=== PATIENT | female | born 1960 | race Caucasian/White ===

== ENCOUNTER 2023-05-04 13:50 | Emergency (ER) | payer BC, SELFPAY ==
--- NOTE | 2023-05-04 | ECG_ITS ---
Test Reason : CHEST PAIN Blood Pressure : / mmHG Vent. Rate : 086 BPM Atrial Rate : 086 BPM P-R Int : 158 ms QRS Dur : 082 ms QT Int : 342 ms P-R-T Axes : 081 078 066 degrees QTc Int : 409 ms Normal sinus rhythm Anterior infarct (cited on or before 10-AUG-2013) Abnormal ECG When compared with ECG of 10-AUG-2013 16:43, No significant change was found Referred By: Junito Banegas Electronically Signed By:Angelito Keith
--- NOTE | ~2023-05-04 | CT_ITS ---
EXAMINATION: CT ABDOMEN AND PELVIS WITHOUT CONTRAST CLINICAL INFORMATION: Pain of left flank. COMPARISON: Abdomen ultrasound from 08/10/2013. CT angiography from 03/03/2023. TECHNIQUE: Multidetector volumetric imaging was performed from the superior aspect of the liver through the pubic symphysis. Sagittal and coronal reformatted images were obtained on the technologist's workstation. This CT examination was performed using dose optimization techniques as appropriate, variously including the following: *Automated exposure control *Adjustment of mA and/or kV according to patient size (this includes techniques or standardized protocols for targeted exams where dose is matched to indication/reason for exam; i.e. extremities or head) *Use of iterative reconstruction technique DLP: 496 mGy-cm FINDINGS: LUNG BASES: Linear opacities of mild atelectasis or scarring are present in each lower lobe. No pulmonary consolidation or pleural effusion. LIVER: The liver has normal size, shape, and attenuation. No evidence of liver mass. GALLBLADDER AND BILIARY TREE: Gallbladder is surgically absent. Common bile duct remains dilated and measures up to 1.3 cm transverse diameter (1 cm on 03/03/2023). No evidence of choledocholithiasis. PANCREAS: Normal. No edema, pancreatic ductal dilatation or mass. SPLEEN: Normal. ADRENAL GLANDS: Normal. KIDNEYS AND URETERS: Kidneys are normal in size. There appear to be a few 0.2 cm calyceal stones of the left kidney. No large renal stones. No ureteral calculi, hydroureteronephrosis or perinephric edema. BLADDER: Normal. No calculi or wall thickening. BOWEL AND PERITONEUM: The gastrointestinal tract is not well evaluated on this noncontrast examination. The stomach is underdistended. No dilated bowel loops. No evidence of appendicitis. There are multiple diverticula of the right and left colon without evidence of acute diverticulitis. The colon and rectum are underdistended. There is mild haziness of the perirectal fat. The lymph nodes within the mesorectal compartment measure up to 0.5 cm short axis dimension. ABDOMINAL WALL: Unremarkable. VASCULATURE: Mild atherosclerotic calcification of the abdominal aorta without aneurysm. LYMPH NODES: No pathologic sized lymph nodes in the abdomen or pelvis. No inguinal lymphadenopathy. PELVIC VISCERA: Prior hysterectomy with residual cervix in place. No adnexal mass. No pelvic free fluid. MUSCULOSKELETAL: No acute or suspicious osseous abnormality. Degenerative disc disease of L3-L4 (as manifest by narrowing of the disc space, endplate irregularity and sclerosis, vacuum disc phenomenon, and vertebral osteophyte formation). CT/CT abdomen pelvis wo IV con IMPRESSION: * There appear to be a few 0.2 cm calculi of the left kidney. However, no ureteral stones or hydroureteronephrosis. No acute abnormalities along the urinary tracts. * The gastrointestinal tract is not well evaluated on this noncontrast examination. Clinical correlation required for the finding of mild haziness of the perirectal fat. If the patient has any lower pelvic/rectal region pain and diarrhea, then a mild proctitis would be suspected. * Multiple diverticula of the colon without evidence of diverticulitis. * Cholecystectomy with chronically dilated common duct. The common duct dilatation has increased compared to 03/03/2023. Consider correlation with liver function tests and bilirubin levels.
[2023-05-04 13:54] VITALS: BP 182/96; PULSE 106; RESP 16; TEMP 36.6; O2SAT 97; BMI 17.8
--- NOTE | 2023-05-04 13:54 | ED_ITS ---
HPI - General Adult General Chief complaint: Abdominal Pain Stated complaint: L side pain Time Seen by Provider: 05/04/23 16:19 Source: patient Mode of arrival: ambulatory Limitations: no limitations History of Present Illness HPI narrative: Patient with history of Crohn's disease on stelara chronic abdominal pain syndrome on morphine 15 mg twice a day followed by pain clinic comes here for similar left upper quadrant and left flank pain for last 4 days associated with nausea vomiting and diarrhea claiming get her medication not working no blood in the stool no fever no chills patient is very demanding for the pain medication had labs and CT scan of abdomen done prior to my evaluation which was negative for any acute. Related Data Home Medications Medication Instructions Recorded Confirmed albuterol sulfate 90 mcg/actuation 0 mcg inhalation 07/04/22 07/04/22 aerosol inhaler azathioprine 50 mg tablet 25 mg PO DAILY 07/04/22 07/04/22 butalbital 50 mg-acetaminophen 325 1 cap PO Q4H PRN 07/04/22 07/04/22 mg-caffeine 40 mg-codeine 30 mg cap clonazepam 1 mg tablet 1 mg PO BEDTIME PRN 07/04/22 07/04/22 dicyclomine 10 mg capsule 10 mg PO BID PRN 07/04/22 07/04/22 ergocalciferol (vitamin D2) 1,250 1,250 mcg PO QWEEK 07/04/22 07/04/22 mcg (50,000 unit) capsule hydroxyzine HCl 25 mg tablet 100 mg PO BEDTIME 07/04/22 07/04/22 levothyroxine 25 mcg tablet 25 mcg PO DAILY 07/04/22 07/04/22 (Levoxyl) montelukast 10 mg tablet 10 mg PO BEDTIME 07/04/22 07/04/22 nortriptyline 50 mg capsule 50 mg PO BEDTIME 07/04/22 07/04/22 omeprazole 20 mg capsule,delayed 20 mg PO DAILY 07/04/22 07/04/22 release tizanidine 2 mg tablet 2 mg PO BID PRN 07/04/22 07/04/22 tramadol 50 mg tablet 50 mg PO Q6H PRN 07/04/22 07/04/22 Allergies Allergy/AdvReac Type Severity Reaction Status Date / Time prednisone AdvReac Severe steroid Verified 05/04/23 13:54 psychosis Review of Systems Review of Systems: Yes all other systems are reviewed and are negative [facility] Past Medical History Medical History Depression Fibromyalgia Gastroesophageal reflux disease Hypothyroidism Insomnia Migraine headache Seasonal allergies Social History Social History Advance Directives: No Advance Directives Information Provided: No Physical Exam ED Vital Signs: Vital Signs - 24 hr 05/04/23 13:54 05/04/23 16:49 05/04/23 19:10 Temperature 97.8 F Pulse Rate 106 H 89 85 Respiratory Rate 16 18 18 Blood Pressure 182/96 H 170/93 H 180/93 H Pulse Oximetry 97 98 99 Oxygen Delivery Method Room Air Room Air Room Air BMI result Body Mass Index 17.8 Appearance: Alert. Oriented X3. No acute distress. Eyes: No pallor or icterus ENT: Pharynx normal. Oral Mucosa moist Neck: Normal inspection. Neck supple. CVS: Normal heart rate and rhythm. Pulses normal. Respiratory: No respiratory distress. Equal air entry bilateral, no wheezing/rales/rhonchi Abdomen: Soft , diffuse abdominal tenderness no rebound tenderness or guarding Bowel sounds are present, no mass palpable, left flank and back tenderness very sensitive to touch Skin: Skin warm and dry. Normal skin color. Normal skin turgor. Extremities: No lower extremity edema. No calf tenderness Neuro: Oriented X 3. No motor deficit. Course Course Course Narrative: RME- 63 year old female with past medical history significant for Crohn disease, chronic pain syndrome presents for evaluation of left flank pain. Symptoms started 3 days ago. She endorses diarrhea and vomiting. Pain is not improved with Morphine that she has at home. Plan for labs, Ct abdomena nd pelvis as well as UA Medications Administered Generic Name Dose Route Start Last Admin Trade Name Freq PRN Reason Stop Dose Admin Sodium Chloride 1,000 mls @ 999 mls/hr 05/04/23 18:49 05/04/23 18:54 Ns IV 05/04/23 19:49 999 mls/hr .Q1H1M ONE Administration Discontinued Medications Generic Name Dose Route Start Last Admin Trade Name Freq PRN Reason Stop Dose Admin Hydromorphone HCl 2 mg 05/04/23 16:36 05/04/23 16:58 Hydromorphone Hcl 2 Mg/Ml Vial IVPUSH 05/04/23 16:37 2 mg ONCE ONE Administration Protocol Sodium Chloride 1,000 mls @ 999 mls/hr 05/04/23 16:36 05/04/23 18:24 Ns IV 05/04/23 17:36 Infused .Q1H1M ONE Infusion Promethazine HCl 12.5 mg/ 50.5 mls @ 202 mls/hr 05/04/23 18:22 05/04/23 18:48 Sodium Chloride IV 05/04/23 18:23 Infused ONCE ONE Infusion Ketorolac Tromethamine 30 mg 05/04/23 18:22 05/04/23 18:32 Ketorolac Tromethamine 30 Mg/Ml Vial IVPUSH 05/04/23 18:23 Not Given ONCE ONE Morphine Sulfate 4 mg 05/04/23 18:45 05/04/23 19:02 Morphine Sulfate 4 Mg/Ml Cartridge IVPUSH 05/04/23 18:46 4 mg ONCE ONE Administration Protocol Ondansetron HCl 4 mg 05/04/23 16:36 05/04/23 17:01 Ondansetron Hcl 4 Mg/2 Ml Vial IVPUSH 05/04/23 16:37 Not Given ONCE ONE Medical Decision Making Medical Decision Making [facility] Narrative: Patient with chronic pain workup is negative so far patient asking for more narcotics already received 2 mg of Dilaudid does have morphine at home very argumentative and demanding discharge patient home advised to follow with pain clinic Lab Data MDM Lab Attestation statement: I reviewed the patient's lab results. 05/04/23 14:47 05/04/23 14:47 Labs: Lab Results 05/04/23 05/04/23 05/04/23 Range/Units 14:47 14:47 18:28 WBC 8.5 (4.8-10.8) X10*3/uL RBC 4.16 L (4.20-5.50) X10*6/uL Hgb 11.2 L (12.0-16.0) g/dl Hct 34.5 L (37.0-47.0) % MCV 82.9 (80.0-98.0) fL MCH 26.9 L (27.0-33.0) pg MCHC 32.5 (31.0-35.0) g/dl RDW 13.3 (11.0-16.0) % Plt Count 252 (160-400) X10*3/uL MPV 8.8 L (9.4-12.3) fL Immature Gran % (Auto) 0.2 (0.0-0.4) % Neut % (Auto) 77.5 H (45-73) % Lymph % (Auto) 15.2 L (20-40) % [place] % (Auto) 6.0 (2-11) % Eos % (Auto) 0.4 (0-4) % Baso % (Auto) 0.7 (0-2) % Lymph # (Auto) 1.3 (1.2-4.9) X10*3/uL [place] # (Auto) 0.5 (0.1-1.2) X10*3/uL Eos # (Auto) 0.0 (0.0-0.4) X10*3/uL Baso # (Auto) 0.1 (0.0-0.2) X10*3/uL Abs Immat Gran (auto) 0.02 (0.00-0.03) X10*3/uL Absolute Neuts (auto) 6.6 (2.0-8.3) x10*3/uL Absolute Nucleated RBC 0.000 (0.0-0.012) X10*3/uL Nucleated RBC % (auto) 0.0 (0.0-0.2) /100WBC Sodium 139 (135-145) mmol/L Potassium 4.3 (3.3-5.1) mmol/L Chloride 107 (96-108) mmol/L Carbon Dioxide 25 (22-29) mmol/L Anion Gap 11 L (12-20) BUN 17 H (9-16) mg/dL Creatinine 0.99 (0.5-1.4) mg/dL Estim Creat Clear Calc 43.9 Estimated GFR 56 Random Glucose 103 (60-115) mg/dL Calcium 9.0 (8.4-10.2) mg/dL Total Bilirubin 0.2 (0.0-1.0) mg/dL AST 19 (5-31) U/L ALT 12 (0-31) U/L Alkaline Phosphatase 71 (39-117) U/L Total Protein 6.8 (6.5-8.0) g/dL Albumin 4.0 (3.5-5.0) g/dL Lipase 9 (8-78) U/L Urine Color Yellow Urine Appearance Clear Urine pH 7.5 (5.0-9.0) Ur Specific [place] 1.010 (1.005-1.025) Urine Protein Negative (Neg-Trace) mg/dL Urine Glucose (UA) Negative (Negative) mg/dL Urine Ketones Negative (Negative) mg/dL Urine Blood Negative (Negative) Urine Nitrite Negative (Negative) Ur Leukocyte Esterase Negative (Negative) Urine RBC 0-2 (0-2) /HPF Urine WBC 0-5 (0-5) /HPF Ur Squamous Epith Cells 0-2 (0-2) /HPF Urine Bacteria None Seen (None Seen) Hyaline Casts 0-2 (0-2) /LPF Acetone, Qual Negative (Negative) Discharge Plan Discharge Clinical Impression: Chronic pain syndrome Patient Disposition: Home, Self-Care Instructions: Chronic Pain (ED) Additional Instructions: Continue your pain medications follow-up with the Pain Clinic Prescriptions: No Action dicyclomine 10 mg capsule 10 mg PO BID PRN levothyroxine [Levoxyl] 25 mcg tablet 25 mcg PO DAILY hydroxyzine HCl 25 mg tablet 100 mg PO BEDTIME tramadol 50 mg tablet 50 mg PO Q6H PRN nortriptyline 50 mg capsule 50 mg PO BEDTIME montelukast 10 mg tablet 10 mg PO BEDTIME azathioprine 50 mg tablet 25 mg PO DAILY tizanidine 2 mg tablet 2 mg PO BID PRN ergocalciferol (vitamin D2) 1,250 mcg (50,000 unit) capsule 1,250 mcg PO QWEEK clonazepam 1 mg tablet 1 mg PO BEDTIME PRN omeprazole 20 mg capsule,delayed release(DR/EC) 20 mg PO DAILY albuterol sulfate 90 mcg/actuation HFA aerosol inhaler 0 mcg inhalation [id number] mg capsule 1 cap PO Q4H PRN
[2023-05-04 14:51] LABS: MANUAL DIFF FLAG NO
[2023-05-04 14:54] LABS: Basophils Absolute Auto 0.1 X10*3/uL (0.0-0.2); Basophils Percent Auto 0.7 % (0-2); Eosinophils Percent Auto 0.4 % (0-4); Hematocrit 34.5 % (37.0-47.0); Hemoglobin 11.2 g/dl (12.0-16.0); Imm Gran Abs Auto 0.02 X10*3/uL (0.00-0.03); Imm Gran Pct Auto 0.2 % (0.0-0.4); Lymphocytes Absolute Auto 1.3 X10*3/uL (1.2-4.9); Lymphocytes Percent Auto 15.2 % (20-40); Mean Corpuscular HGB Conc 32.5 g/dl (31.0-35.0); Mean Corpuscular Hemoglobin 26.9 pg (27.0-33.0); Mean Corpuscular Volume 82.9 fL (80.0-98.0); Mean Platelet Volume 8.8 fL (9.4-12.3); Monocytes Absolute Auto 0.5 X10*3/uL (0.1-1.2); Neutrophils Absolute Auto 6.6 x10*3/uL (2.0-8.3); Neutrophils Percent Auto 77.5 % (45-73); Platelet Count 252 X10*3/uL (160-400); Red Blood Count 4.16 X10*6/uL (4.20-5.50); Red Cell Distribution Width 13.3 % (11.0-16.0); White Blood Count 8.5 X10*3/uL (4.8-10.8)
[2023-05-04 15:10] LABS: Alanine Aminotransferase 12 U/L (0-31); Alkaline Phosphatase 71 U/L (39-117); Anion Gap 11 (12-20); Aspartate Amino Transferase 19 U/L (5-31); Bilirubin Total 0.2 mg/dL (0.0-1.0); Blood Urea Nitrogen 17 mg/dL (9-16); Carbon Dioxide 25 mmol/L (22-29); Chloride 107 mmol/L (96-108); Creatinine Clr Calc Pharmacy 43.9; Estimated Glomerular Filt Rate 56; Glucose Random 103 mg/dL (60-115); Lipase 9 U/L (8-78); Potassium 4.3 mmol/L (3.3-5.1); Sodium 139 mmol/L (135-145); Total Protein 6.8 g/dL (6.5-8.0)
[2023-05-04 16:49] VITALS: BP 170/93; PULSE 89; RESP 18; O2SAT 98
[2023-05-04] MEDS: HYDROmorphone HCl 2 MG/ML VIAL IVPUSH (16:58)
[2023-05-04] MEDS: 0.9 % Sodium Chloride 1,000 ML 999 ML IV ×2 (16:58→18:54)
[2023-05-04 17:31] LABS: Acetone, serum QL Negative (Negative)
--- NOTE | 2023-05-04 18:34 | PC.NURSE ---
patient states RN and MD are ignoring her symptoms of pain. IVP dialudid administered. states no relief. Toradol ordered- patient refused. states she has chrohns disease and MD is trying to jl her up more than she already is. RN explained oral and iv meds metabolize differently. patient did not want to accept education.
[2023-05-04 18:47] LABS: Appearance Urine Clear; Color Urine Yellow; Glucose Urine UA Negative (Negative); Leukocyte Esterase Urine Negative (Negative); Nitrite Urine Negative (Negative); PH 7.5 (5.0-9.0); Urine Blood Negative (Negative); Urine Ketones Negative (Negative); Urine Protein Negative (Neg-Trace)
[2023-05-04 18:52] LABS: Bacteria Urine None Seen (None Seen); Hyaline Casts Urine 0-2 /LPF (0-2); RBC Urine 0-2 /HPF (0-2); Squamous Epithelial Cell Urine 0-2 /HPF (0-2); WBC Urine 0-5 /HPF (0-5)
[2023-05-04] MEDS: Morphine Sulfate 4 MG/ML CARTRIDGE IVPUSH (19:02)
[2023-05-04 19:10] VITALS: BP 180/93; PULSE 85; RESP 18; O2SAT 99
[2023-05-04] MEDS: Ketorolac Tromethamine 30 MG/ML VIAL IVPUSH (19:39)
== END 2023-05-04 19:46 | disposition home or self-care (01) ==
PROVIDERS: Physician Assistant; Emergency Provider Internal Medicine; PCP Family Medicine
DX: G89.4 Chronic pain syndrome (principal); R10.12 Left upper quadrant pain; R10.9 Unspecified abdominal pain; Z79.891 Long term (current) use of opiate analgesic
CPT/HCPCS: 36415; 74176; 80053; 81001; 82009; 83690; 85025; 93005; 96361; 96365; 96375; 99284; J1170; J1885; J2270; J2550

== ENCOUNTER 2023-11-06 09:27 | Emergency (ER) | payer BC, SELFPAY ==
--- NOTE | ~2023-11-06 | XR_ITS ---
EXAMINATION: XR CHEST CLINICAL INFORMATION: Chest pain COMPARISON: Chest radiograph 09/10/2023 TECHNIQUE: 2 views of the chest were obtained. FINDINGS: No focal consolidation. No pneumothorax. Trachea is midline. Cardiac mediastinal silhouette is not enlarged. No large pleural effusion. Osseous structures are intact. Soft tissues are unremarkable. XR/XR chest 2V IMPRESSION: No acute cardiopulmonary process.
--- NOTE | 2023-11-06 09:29 | ECG_ITS ---
Test Reason : CHEST PAIN Blood Pressure : / mmHG Vent. Rate : 107 BPM Atrial Rate : 107 BPM P-R Int : 138 ms QRS Dur : 068 ms QT Int : 318 ms P-R-T Axes : 086 076 059 degrees QTc Int : 424 ms Sinus tachycardia Possible Left atrial enlargement Anteroseptal infarct (cited on or before 10-AUG-2013) Abnormal ECG When compared with ECG of 04-MAY-2023 17:10, Questionable change in initial forces of Septal leads Referred By: Generic ED Physician Electronically Signed By:Angelito Keith
[2023-11-06 09:34] VITALS: BP 157/74; PULSE 112; RESP 20; TEMP 37.5; O2SAT 97; BMI 15.5
--- NOTE | 2023-11-06 10:29 | ED.CHESTPAIN ---
HPI - Chest Pain General Chief Complaint: Chest Pain Stated Complaint: Chest pain Time Seen by Provider: 11/06/23 10:17 Source: patient, RN notes reviewed and old records reviewed Mode of arrival: ambulatory History of Present Illness HPI narrative: 63-year-old female with a past medical history of hypothyroid, insomnia, GERD, depression, fibromyalgia, migraines, Crohn's disease, presenting to the ED complaining of left-sided chest pain beneath breast x this morning with mild SOB, cough, and chest discomfort worse with deep inspiration. Also reports nausea, vomiting, & decreased p.o. intake over the past 5 days, denies vomiting today. Admits to increased anxiety. Denies pedal edema some calf tenderness, recent travel, sick contacts. Reports chronic abdominal pain and constipation, unchanged MD complaint: chest pain Related Data Home Medications Medication Instructions Recorded Confirmed albuterol sulfate 90 mcg/actuation 0 mcg inhalation 07/04/22 07/04/22 aerosol inhaler azathioprine 50 mg tablet 25 mg PO DAILY 07/04/22 07/04/22 butalbital 50 mg-acetaminophen 325 1 cap PO Q4H PRN 07/04/22 07/04/22 mg-caffeine 40 mg-codeine 30 mg cap clonazepam 1 mg tablet 1 mg PO BEDTIME PRN 07/04/22 07/04/22 dicyclomine 10 mg capsule 10 mg PO BID PRN 07/04/22 07/04/22 ergocalciferol (vitamin D2) 1,250 1,250 mcg PO QWEEK 07/04/22 07/04/22 mcg (50,000 unit) capsule hydroxyzine HCl 25 mg tablet 100 mg PO BEDTIME 07/04/22 07/04/22 levothyroxine 25 mcg tablet 25 mcg PO DAILY 07/04/22 07/04/22 (Levoxyl) montelukast 10 mg tablet 10 mg PO BEDTIME 07/04/22 07/04/22 nortriptyline 50 mg capsule 50 mg PO BEDTIME 07/04/22 07/04/22 omeprazole 20 mg capsule,delayed 20 mg PO DAILY 07/04/22 07/04/22 release tizanidine 2 mg tablet 2 mg PO BID PRN 07/04/22 07/04/22 tramadol 50 mg tablet 50 mg PO Q6H PRN 07/04/22 07/04/22 Allergies Allergy/AdvReac Type Severity Reaction Status Date / Time prednisone AdvReac Severe steroid Verified 11/06/23 09:40 psychosis Review of Systems Review of Systems: Constitutional: No Fever, No Chills, No Fatigue, No Malaise ENT/Mouth: No Ear Pain, No Nasal Congestion, N No sore throat, No Rhinorrhea, No Swallowing Difficulty Eyes: No Eye Pain, No Swelling, No Redness, No Foreign Body, No Discharge, No Vision Changes Cardiovascular: + Chest Pain, + SOB, No Edema, No Palpitations Respiratory: No Cough, No Sputum, No Wheezing, No Smoke Exposure, No Dyspnea Gastrointestinal: + Nausea (improved), + Vomiting (improved), No Diarrhea, No Constipation, chronic Abdominal pain Genitourinary: No Dysuria, No Urinary Frequency, No Hematuria, No Urinary Incontinence/retention, No Urgency, No Flank Pain Musculoskeletal: No joint pain, No Myalgias, No Joint Swelling Skin: No Skin Lesions, No rash Neuro: No Weakness, No Numbness, No Loss of Consciousness, No Dizziness, No Headache Psych: +Anxiety/Panic,No Social Issues Yes all other systems are reviewed and are negative Constitutional: Constitutional: Reports as per [facility] Past Medical History Attestation statement: The following information was validated with the patient. Source: old records reviewed Medical History Seasonal allergies Hypothyroidism Insomnia Gastroesophageal reflux disease Depression Fibromyalgia Migraine headache Social History Social History Advance Directives: No Advance Directives Information Provided: Yes Physical Exam Vital Signs: Vital Signs: Last Vital Signs Temp 99.5 F 11/06/23 09:34 Pulse 101 H 11/06/23 14:46 Resp 20 11/06/23 14:46 BP 159/77 H 11/06/23 14:46 Pulse Ox 97 11/06/23 14:46 O2 Del Method Room Air 11/06/23 14:46 BMI result Body Mass Index 15.5 Const: General: cooperative, no acute distress and anxious Nutritional Appearance: overweight Orientation/consciousness: patient oriented x3 Limitations: no limitations HEENT: Head: Yes normal to inspection and Yes atraumatic Ears: hearing grossly normal bilaterally General nose exam: Normal external nose present Face and sinus: Yes normal facial exam Eyes: General: appearance normal, both eyes and all related structures EOM: EOMs intact bilaterally Neck: Neck: Yes normal visual inspection and Yes no meningeal signs Chest: Chest palpation & inspection: normal inspection of the chest, no crepitus and no tenderness Resp: Effort & Inspection: normal respiratory effort and no respiratory distress Auscultation: clear to auscultation bilaterally, no crackles and no wheezes Cardio: Rate: regular rate and tachycardic Heart sounds: S1 normal heart sound present and S2 normal heart sound present GI: Inspection: Yes normal to inspection Palpation (GI): Soft to palpation, nontender, no guarding and not rigid Skin: Rashes: no rashes Wounds: no wounds Neuro: General: patient oriented x3, tone normal, moves all extremities and no meningeal signs Cranial nerves: Yes CN's II-XII intact bilaterally Extrem: General: Yes normal to inspection, Yes no pedal edema and Yes no calf tenderness Course Course Course Narrative: -1148--no leukocytosis. H&H at patient's baseline. D-dimer WNL > PE unlikely -troponin negative > will obtain 3hr repeat. UA negative XR chest 2V IMPRESSION: No acute cardiopulmonary process. -COVID and flu negative -1440--2nd troponin negative, [place] unlikely. > On re-evaluation patient reporting severe chronic GERD/acid reflux which is providing her for not eating. Reports anorexia/decreased p.o. intake and weight loss due to poor intake secondary to pain. Patient and state she has seen multiple medical specialists at multiple different hospitals over the past few years for same sx, has had full GI workup without discovery. Saw her GI doctor on Monday who started her on additional medations. frustrated, looking for more care in the home. States patient is unsteady on her feet due to generalized weakness from poor oral intake. >> will obtain CARE team, PT and Case Management eval. Physician observation initiated at 14:56 -1630--ED care transfer to [facility] pending CARE team, PT/Case Management eval Medications Administered Discontinued Medications Generic Name Dose Route Start Last Admin Trade Name Freq PRN Reason Stop Dose Admin Sodium Chloride 1,000 mls @ 999 mls/hr 11/06/23 10:45 11/06/23 13:33 Ns IV 11/06/23 11:45 Infused .Q1H1M NITIN Infusion Lorazepam 1 mg 11/06/23 10:35 11/06/23 12:04 Lorazepam 1 Mg Tablet PO 11/06/23 10:36 1 mg ONCE ONE Administration Metoclopramide HCl 10 mg 11/06/23 11:59 11/06/23 12:04 Metoclopramide Hcl 10 Mg/2 Ml Vial IVPUSH 11/06/23 12:00 10 mg ONCE ONE Administration Medical Decision Making Medical Decision Making MDM Narrative: 63-year-old female with a past medical history of hypothyroid, insomnia, GERD, depression, fibromyalgia, migraines, Crohn's disease, presenting to the ED complaining of left-sided chest pain beneath breast x this morning with mild SOB, cough, and chest discomfort worse with deep inspiration. Also reports nausea, vomiting, & decreased p.o. intake over the past 5 days, denies vomiting today. On exam low-grade temp 99.5 degrees, tachycardic likely from anxiety, abdomen soft/nontender, chest wall without reproducible pain. No rash or crepitus. No flail chest. Lungs CTA. Concern for dehydration/metabolic abnormalities vs ACS vs PE or PTX or PNA. Lower suspicion for CHF Plan: EKG, labs, UA, viral testing, CXR, IVF, re-evaluate Please refer to course for remaining clinical decision making, interpretation of labs/imaging results, and discussions with consultants and/or family members. Differential Diagnosis Differential Diagnoses: The differential diagnosis associated with the presentation includes As above Admission/Observation Consideration of admission/observation: Escalation of care including admission/observation considered Lab Data [facility] Lab Attestation statement: I reviewed the patient's lab results. 11/06/23 10:12 11/06/23 10:12 Labs: Lab Results 11/06/23 11/06/23 11/06/23 Range/Units 10:12 11:19 11:20 WBC 6.9 (4.8-10.8) X10*3/uL RBC 4.17 L (4.20-5.50) X10*6/uL Hgb 10.8 L (12.0-16.0) g/dl Hct 34.1 L (37.0-47.0) % MCV 81.8 (80.0-98.0) fL MCH 25.9 L (27.0-33.0) pg MCHC 31.7 (31.0-35.0) g/dl RDW 13.6 (11.0-16.0) % Plt Count 326 D (160-400) X10*3/uL MPV 8.6 L (9.4-12.3) fL Immature Gran % (Auto) 0.3 (0.0-0.4) % Neut % (Auto) 79.5 H (45-73) % Lymph % (Auto) 11.8 L (20-40) % [place] % (Auto) 6.5 (2-11) % Eos % (Auto) 1.0 (0-4) % Baso % (Auto) 0.9 (0-2) % Lymph # (Auto) 0.8 L (1.2-4.9) X10*3/uL [place] # (Auto) 0.5 (0.1-1.2) X10*3/uL Eos # (Auto) 0.1 (0.0-0.4) X10*3/uL Baso # (Auto) 0.1 (0.0-0.2) X10*3/uL Abs Immat Gran (auto) 0.02 (0.00-0.03) X10*3/uL Absolute Neuts (auto) 5.5 (2.0-8.3) x10*3/uL Absolute Nucleated RBC 0.000 (0.0-0.012) X10*3/uL Nucleated RBC % (auto) 0.0 (0.0-0.2) /100WBC PT 12.4 (11.1-13.3) SEC INR 1.0 (0.9-1.1) D-Dimer High Sensitivty 170 NG/ML Sodium 140 (135-145) mmol/L Potassium 3.8 (3.3-5.1) mmol/L Chloride 105 (96-108) mmol/L Carbon Dioxide 27 (22-29) mmol/L Anion Gap 12 (12-20) BUN 10 (9-16) mg/dL Creatinine 0.84 (0.5-1.4) mg/dL Estim Creat Clear Calc 45.1 Estimated GFR > 60 Random Glucose 124 H (60-115) mg/dL Calcium 8.9 (8.4-10.2) mg/dL Magnesium 1.8 (1.6-2.6) mg/dL Total Bilirubin 0.3 (0.0-1.0) mg/dL Direct Bilirubin 0.1 (0.0-0.5) mg/dL AST 17 (5-31) U/L ALT 13 (0-31) U/L Alkaline Phosphatase 64 (39-117) U/L Troponin I High Sens < 2.7 (<3.5-17.0) ng/L Total Protein 6.8 (6.5-8.0) g/dL Albumin 3.8 (3.5-5.0) g/dL Lipase 9 (8-78) U/L Urine Color Dark Yellow Urine Appearance Clear Urine pH 7.0 (5.0-9.0) Ur Specific [place] 1.020 (1.005-1.025) Urine Protein Trace (Neg-Trace) mg/dL Urine Glucose (UA) Negative (Negative) mg/dL Urine Ketones Negative (Negative) mg/dL Urine Blood Negative (Negative) Urine Nitrite Negative (Negative) Ur Leukocyte Esterase Negative (Negative) COVID-19 (AURELIO) Negative (Negative) COVID-19 Clin Com See Note Influenza Type A (NELL) Negative (Negative) Influenza Type B (NELL) Negative (Negative) Influenza A & B Note See Note 11/06/23 Range/Units 13:35 WBC (4.8-10.8) X10*3/uL RBC (4.20-5.50) X10*6/uL Hgb (12.0-16.0) g/dl Hct (37.0-47.0) % MCV (80.0-98.0) fL MCH (27.0-33.0) pg MCHC (31.0-35.0) g/dl RDW (11.0-16.0) % Plt Count (160-400) X10*3/uL MPV (9.4-12.3) fL Immature Gran % (Auto) (0.0-0.4) % Neut % (Auto) (45-73) % Lymph % (Auto) (20-40) % [place] % (Auto) (2-11) % Eos % (Auto) (0-4) % Baso % (Auto) (0-2) % Lymph # (Auto) (1.2-4.9) X10*3/uL [place] # (Auto) (0.1-1.2) X10*3/uL Eos # (Auto) (0.0-0.4) X10*3/uL Baso # (Auto) (0.0-0.2) X10*3/uL Abs Immat Gran (auto) (0.00-0.03) X10*3/uL Absolute Neuts (auto) (2.0-8.3) x10*3/uL Absolute Nucleated RBC (0.0-0.012) X10*3/uL Nucleated RBC % (auto) (0.0-0.2) /100WBC PT (11.1-13.3) SEC INR (0.9-1.1) D-Dimer High Sensitivty NG/ML Sodium (135-145) mmol/L Potassium (3.3-5.1) mmol/L Chloride (96-108) mmol/L Carbon Dioxide (22-29) mmol/L Anion Gap (12-20) BUN (9-16) mg/dL Creatinine (0.5-1.4) mg/dL Estim Creat Clear Calc Estimated GFR Random Glucose (60-115) mg/dL Calcium (8.4-10.2) mg/dL Magnesium (1.6-2.6) mg/dL Total Bilirubin (0.0-1.0) mg/dL Direct Bilirubin (0.0-0.5) mg/dL AST (5-31) U/L ALT (0-31) U/L Alkaline Phosphatase (39-117) U/L Troponin I High Sens < 2.7 (<3.5-17.0) ng/L Total Protein (6.5-8.0) g/dL Albumin (3.5-5.0) g/dL Lipase (8-78) U/L Urine Color Urine Appearance Urine pH (5.0-9.0) Ur Specific [place] (1.005-1.025) Urine Protein (Neg-Trace) mg/dL Urine Glucose (UA) (Negative) mg/dL Urine Ketones (Negative) mg/dL Urine Blood (Negative) Urine Nitrite (Negative) Ur Leukocyte Esterase (Negative) COVID-19 (AURELIO) (Negative) COVID-19 Clin Com Influenza Type A (NELL) (Negative) Influenza Type B (NELL) (Negative) Influenza A & B Note Independent Interpretation I performed an independent interpretation of an: EKG and Plain X-Ray Radiology Impression Discussion of test interpretation with radiology: I have reviewed the radiologist's reading. Independent Historian Clinical information obtained from an independent historian. History obtained from or confirmed by: Spouse External Record Review External record reviewed: Inpatient record, Office record, Outpatient record, Prior outpatient labs, Prior outpatient radiology, Primary care record and Outside ED record Tests considered The following testing was considered but not selected: As above Discharge Plan Discharge Clinical Impression: Chest pain, Nausea, Anorexia Patient Disposition: Still a Patient Prescriptions: No Action dicyclomine 10 mg capsule 10 mg PO BID PRN levothyroxine [Levoxyl] 25 mcg tablet 25 mcg PO DAILY hydroxyzine HCl 25 mg tablet 100 mg PO BEDTIME tramadol 50 mg tablet 50 mg PO Q6H PRN nortriptyline 50 mg capsule 50 mg PO BEDTIME montelukast 10 mg tablet 10 mg PO BEDTIME azathioprine 50 mg tablet 25 mg PO DAILY tizanidine 2 mg tablet 2 mg PO BID PRN ergocalciferol (vitamin D2) 1,250 mcg (50,000 unit) capsule 1,250 mcg PO QWEEK clonazepam 1 mg tablet 1 mg PO BEDTIME PRN omeprazole 20 mg capsule,delayed release(DR/EC) 20 mg PO DAILY albuterol sulfate 90 mcg/actuation HFA aerosol inhaler 0 mcg inhalation [id number] mg capsule 1 cap PO Q4H PRN
[2023-11-06 10:31] LABS: MANUAL DIFF FLAG NO
[2023-11-06 10:32] LABS: Basophils Absolute Auto 0.1 X10*3/uL (0.0-0.2); Basophils Percent Auto 0.9 % (0-2); Eosinophils Absolute Auto 0.1 X10*3/uL (0.0-0.4); Hematocrit 34.1 % (37.0-47.0); Hemoglobin 10.8 g/dl (12.0-16.0); Imm Gran Abs Auto 0.02 X10*3/uL (0.00-0.03); Imm Gran Pct Auto 0.3 % (0.0-0.4); Lymphocytes Absolute Auto 0.8 X10*3/uL (1.2-4.9); Lymphocytes Percent Auto 11.8 % (20-40); Mean Corpuscular HGB Conc 31.7 g/dl (31.0-35.0); Mean Corpuscular Hemoglobin 25.9 pg (27.0-33.0); Mean Corpuscular Volume 81.8 fL (80.0-98.0); Mean Platelet Volume 8.6 fL (9.4-12.3); Monocytes Absolute Auto 0.5 X10*3/uL (0.1-1.2); Monocytes Percent Auto 6.5 % (2-11); Neutrophils Absolute Auto 5.5 x10*3/uL (2.0-8.3); Neutrophils Percent Auto 79.5 % (45-73); Platelet Count 326 X10*3/uL (160-400); Red Blood Count 4.17 X10*6/uL (4.20-5.50); Red Cell Distribution Width 13.6 % (11.0-16.0); White Blood Count 6.9 X10*3/uL (4.8-10.8)
[2023-11-06 10:51] LABS: Alanine Aminotransferase 13 U/L (0-31); Albumin Level 3.8 g/dL (3.5-5.0); Alkaline Phosphatase 64 U/L (39-117); Anion Gap 12 (12-20); Aspartate Amino Transferase 17 U/L (5-31); Bilirubin Direct 0.1 mg/dL (0.0-0.5); Bilirubin Total 0.3 mg/dL (0.0-1.0); Blood Urea Nitrogen 10 mg/dL (9-16); Calcium 8.9 mg/dL (8.4-10.2); Carbon Dioxide 27 mmol/L (22-29); Chloride 105 mmol/L (96-108); Creatinine Clr Calc Pharmacy 45.1; Estimated Glomerular Filt Rate > 60; Glucose Random 124 mg/dL (60-115); Lipase 9 U/L (8-78); Magnesium 1.8 mg/dL (1.6-2.6); Potassium 3.8 mmol/L (3.3-5.1); Sodium 140 mmol/L (135-145); Total Protein 6.8 g/dL (6.5-8.0)
[2023-11-06 11:01] LABS: Troponin-I High Sensitivity < 2.7 ng/L (<3.5-17.0)
[2023-11-06] MEDS: 0.9 % Sodium Chloride 1,000 ML 999 ML IV (11:34)
[2023-11-06 11:35] LABS: Prothrombin Time 12.4 SEC (11.1-13.3)
[2023-11-06 11:36] LABS: D Dimer High Sensitivity 170 NG/ML
[2023-11-06 11:37] LABS: Appearance Urine Clear; Color Urine Dark Yellow; Glucose Urine UA Negative (Negative); Leukocyte Esterase Urine Negative (Negative); Nitrite Urine Negative (Negative); Urine Blood Negative (Negative); Urine Ketones Negative (Negative); Urine Protein Trace mg/dL (Neg-Trace)
[2023-11-06 12:00] VITALS: BP 130/65; PULSE 85; RESP 20; O2SAT 97
[2023-11-06] MEDS: Metoclopramide HCl 10 MG/2 ML VIAL IVPUSH (12:04)
[2023-11-06] MEDS: LORazepam 1 MG TABLET PO (12:04)
[2023-11-06 12:17] LABS: COVID-19 Test Negative (Negative); IDNOW Serial# 9DB6401D
[2023-11-06 12:18] LABS: IDNOW Serial# 58CA691E; Influenza A Negative (Negative); Influenza B2 Negative (Negative)
[2023-11-06 14:06] LABS: Troponin-I High Sensitivity < 2.7 ng/L (<3.5-17.0)
[2023-11-06 14:46] VITALS: BP 159/77; PULSE 101; RESP 20; O2SAT 97
--- NOTE | 2023-11-06 14:55 | MHC.CM.ED ---
PATIENT ARRIVES WITH COUGH, SOB, AND CHEST DISCOMFORT. CM CONSULT ORDERED. PATIENT WITH PROVIDER. NO P.T. EVALUATION AT THIS TIME. CASE MANAGEMENT TO ASSESS FOR NEEDS AT A MORE APPROPRIATE TIME
--- NOTE | 2023-11-06 15:06 | MHC.CM.ED ---
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 SHE MAY NOT HAVE [facility] BENEFIT AT THIS TIME. CM SENT REFERRAL TO [facility] TO INQUIRE. Original Note: THIS CANCER CENTER DIRECTOR MET WITH PATIENT AND SPOUSE (WITH PERMISSION ) PATIENT STATES THAT SHE WILL NOT GO TO REHAB, BUT IS OPEN TO [place] [facility] REFERRAL. SHE DOES NOT FEEL SHE CAN PARTICIPATE IN ANY P.T. SERVICES SHE ALSO STATES I CANNOT DO ANYTHING UNTIL I CAN EAT PATIENT REPORTS BEING UNDER CARE OF GI MD, WAS PLACED ON REMICADE, AND EXPERIENCED PSYCHOSIS WITH SI A SIDE EFFECT . REFERRAL PLACED TO [facility] TO FOLLOW. PER PATIENT, A PSYCHIATRIC CONSULT MAY BE ORDERED. CASE MANAGEMENT FOLLOWING
--- NOTE | 2023-11-06 15:46 | PC.NURSE ---
pt refused MALOX. [facility] aware. no new orders.
--- NOTE | 2023-11-06 16:04 | MHC.CM.ED ---
PER [facility], PATIENT HAS MEDICARE PRIME AND [employer] IS SECONDARY. [facility] WILLING TO FOLLOW FOR READINESS.
--- NOTE | 2023-11-06 16:17 | MHC.CM.ED ---
PATIENT UP TO RESTROOM. SPOUSE IS AWARE THAT [facility] IS FOLLOWING.
[2023-11-06] MEDS: clonazePAM 1 MG TABLET PO (16:36)
[2023-11-06 17:01] LABS: Amphetamine Screen Urine Not Detected (Not Detect); Barbiturates, Urine Not Detected (Not Detect); Benzodiazepines Screen Urine POSITIVE (Not Detect); Cannabinoid Screen Urine POSITIVE (Not Detect); Cocaine Screen Urine Not Detected (Not Detect); Fentanyl, urine Not Detected (Not Detect); Opiate Screen Urine POSITIVE (Not Detect); Phencyclidine Screen Urine Not Detected (Not Detect)
[2023-11-06 17:02] LABS: Ethanol < 10 mg/dL
== END 2023-11-06 17:15 | disposition home or self-care (01) ==
PROVIDERS: Physician Assistant; Emergency Provider Emergency Medicine; PCP Family Medicine
DX: R07.9 Chest pain, unspecified (principal); R11.2 Nausea with vomiting, unspecified; R63.0 Anorexia; Z68.1 Body mass index [BMI] 19.9 or less, adult; Z11.52 Encounter for screening for COVID-19; K21.9 Gastro-esophageal reflux disease without esophagitis; R06.02 Shortness of breath; R00.0 Tachycardia, unspecified; R26.81 Unsteadiness on feet; G89.4 Chronic pain syndrome; K50.10 Crohn's disease of large intestine without complications; Z79.899 Other long term (current) drug therapy
CPT/HCPCS: 36415; 71046; 80048; 80076; 80307; 81003; 83690; 83735; 84484; 85025; 85379; 85610; 87502; 87635; 93005; 96361; 96374; 99284; J2765

== ENCOUNTER → 2023-11-06 09:29 | Outpatient (BNV) | payer BC, SELFPAY | PROVIDERS: Emergency Provider Emergency Medicine; PCP Family Medicine; Visit Provider Internal Medicine Cardiovascular Disease | DX: R00.0 Tachycardia, unspecified (principal); R94.31 Abnormal electrocardiogram [ECG] [EKG] | CPT/HCPCS: 93010 ==

== ENCOUNTER 2023-12-07 11:28 | Emergency (ER) | payer BC, SELFPAY ==
--- NOTE | ~2023-12-07 | CT_ITS ---
EXAMINATION: CT ABDOMEN AND PELVIS WITH CONTRAST CLINICAL INFORMATION: Left lower quadrant tenderness. COMPARISON: None available. TECHNIQUE: Multidetector volumetric images were obtained from the superior aspect of the liver through the pubic symphysis following administration 85 mL of Omnipaque 350 intravenous contrast. Sagittal and coronal reformatted images were obtained on the technologist's workstation. Oral contrast: No This CT examination was performed using dose optimization techniques as appropriate, variously including the following: *Automated exposure control *Adjustment of mA and/or kV according to patient size (this includes techniques or standardized protocols for targeted exams where dose is matched to indication/reason for exam; i.e. extremities or head) *Use of iterative reconstruction technique DLP: 266 mGy-cm FINDINGS: LUNG BASES: The visualized lung bases are unremarkable. LIVER, GALLBLADDER, AND BILIARY TREE: The liver is mildly enlarged in size, normal shape, and attenuation. No focal hepatic lesion or intrahepatic biliary ductal dilatation is present. There is minimal perihepatic fluid. The gallbladder has been surgically removed. The common bile duct measures 1.2 cm proximally and 1 cm distally. PANCREAS: Unremarkable. SPLEEN: Unremarkable. ADRENAL GLANDS: Unremarkable. KIDNEYS AND URETERS: The kidneys are normal in size, shape, and attenuation. No hydronephrosis, hydroureter, or calculi seen. No perinephric stranding. BLADDER: Unremarkable. GASTROINTESTINAL TRACT: There is diffuse mural thickening involving the entire there is moderate stool seen in the entire colon consistent significant constipation. The small bowel loops are normal caliber. Appendix is not seen. Sigmoid colon likely colitis from inflammatory or infectious etiology. ABDOMINAL WALL: No significant hernia is appreciated. LYMPH NODES: Normal. VASCULAR: Unremarkable. PELVIC VISCERA: There is no free air or free fluid. OSSEOUS STRUCTURES: Mild degenerative disc changes L3-L4 disc level with ventral spondylosis mid lumbar spine. No aggressive lytic or sclerotic process seen. CT/CT abdomen pelvis w IV con IMPRESSION: Diffuse mural thickening involving the entire sigmoid colon consistent with colitis of inflammatory or infectious etiology. There is significant constipation but no colonic distention to suspect any obstruction. Mild hepatomegaly with perihepatic minimal fluid. Gallbladder is out. Fleischner guidelines were followed.
--- NOTE | 2023-12-07 12:20 | ED.ABDPAIN ---
HPI - Abdominal Pain General Chief Complaint: Abdominal Pain Stated Complaint: abd pain Time Seen by Provider: 12/07/23 15:44 Source: patient Mode of arrival: ambulatory Limitations: no limitations History of Present Illness HPI narrative: Patient is a 63-year-old female presenting to the emergency department with complaint of worsening left lower quadrant abdominal pain and decreased PO intake. Patient reports ongoing abdominal pain, constipation, weight loss, and decreased PO intake for many months since at least July of 2023. States that she has seen multiple gastroenterologists without any definitive diagnosis. Recently hospitalized at [facility] in October for neurological issues, but states that no diagnoses were made at that time either and she was told she is a c diff carrier. She reports nausea but denies vomiting. Reports constipation and is unable to state last bowel movement. Also complains of large hemorrhoid, and bleeding with attempted bowel movements. Unsure if she has had any hematuria due to her rectal bleeding. Denies dysuria or frequency. Denies chest pain, palpitations, or dyspnea. Denies fevers. States attempting to eat increases her pain. Reports using multiple OTC medications to treat her constipation without relief. Reports only thing that is effective for treating her constipation is Go Lytely. MD elicited complaint: abdominal pain Pertinent past history: constipation Onset (ago): month(s) Pain Consistency: colicky Location: LLQ Severity: severe Quality: cramping Radiation: none Migration to: no migration Exacerbating factors: eating Relieving factors: nothing Associated symptoms: nausea, hematochezia and anorexia Treatments prior to arrival: other (OTC laxatives) Related Data Home Medications Medication Instructions Recorded Confirmed albuterol sulfate 90 mcg/actuation 0 mcg inhalation 07/04/22 07/04/22 aerosol inhaler azathioprine 50 mg tablet 25 mg PO DAILY 07/04/22 07/04/22 butalbital 50 mg-acetaminophen 325 1 cap PO Q4H PRN 07/04/22 07/04/22 mg-caffeine 40 mg-codeine 30 mg cap clonazepam 1 mg tablet 1 mg PO BEDTIME PRN 07/04/22 07/04/22 dicyclomine 10 mg capsule 10 mg PO BID PRN 07/04/22 07/04/22 ergocalciferol (vitamin D2) 1,250 1,250 mcg PO QWEEK 07/04/22 07/04/22 mcg (50,000 unit) capsule hydroxyzine HCl 25 mg tablet 100 mg PO BEDTIME 07/04/22 07/04/22 levothyroxine 25 mcg tablet 25 mcg PO DAILY 07/04/22 07/04/22 (Levoxyl) montelukast 10 mg tablet 10 mg PO BEDTIME 07/04/22 07/04/22 nortriptyline 50 mg capsule 50 mg PO BEDTIME 07/04/22 07/04/22 omeprazole 20 mg capsule,delayed 20 mg PO DAILY 07/04/22 07/04/22 release tizanidine 2 mg tablet 2 mg PO BID PRN 07/04/22 07/04/22 tramadol 50 mg tablet 50 mg PO Q6H PRN 07/04/22 07/04/22 Previous Rx's Medication Instructions Recorded ondansetron 4 mg disintegrating 4 mg PO Q8H PRN nausea and 11/06/23 tablet vomiting #20 tabs Allergies Allergy/AdvReac Type Severity Reaction Status Date / Time prednisone AdvReac Severe steroid Verified 11/06/23 09:40 psychosis Review of Systems Review of Systems As per HPI. Yes all other systems are reviewed and are negative [facility] Past Medical History Onset Date is defined in the Problem List Problems that require an onset date and time if occurred within 24 hrs of arrival to the ED Aortic Dissection and Rupture; Neurologic impairment; Cardiopulmonary Arrest; Endotracheal Intubation; Insertion or Replacement of Mechanical Circulatory Assist Device Medical History Seasonal allergies Hypothyroidism Insomnia Gastroesophageal reflux disease Depression Fibromyalgia Migraine headache Social History Social History Advance Directives: No Advance Directives Information Provided: No Physical Exam ED Vital Signs: Vital Signs - 24 hr 12/07/23 12:22 12/07/23 16:00 Temperature 97.6 F 98.8 F Pulse Rate 97 81 Respiratory Rate 15 12 Blood Pressure 126/66 144/64 H Pulse Oximetry 97 98 Oxygen Delivery Method Room Air Room Air BMI result Body Mass Index 15.3 Vital signs have been reviewed and appear to be correct. Blood pressure normal. Heart rate normal. Respiratory rate normal. Temperature normal. Oxygen saturation normal. Const General: cooperative, no acute distress, alert, awake and anxious Nutritional Appearance: thin Orientation/consciousness: patient oriented x3 Limitations: no limitations HENNV Head: Yes normocephalic and Yes atraumatic Ears: hearing grossly normal bilaterally and external ears normal General nose exam: Normal external nose present Mouth: Normal oral and palatal mucosa present Throat: Yes posterior oropharynx normal and Yes uvula midline Eyes Pupils: Equal, round and reactive pupils present Neck Lymphatic: no lymphadenopathy noted Chest Chest palpation & inspection: normal inspection of the chest and normal palpation of entire chest wall Resp Effort & Inspection: normal respiratory effort Auscultation: clear to auscultation bilaterally GI Other: Rectal exam chaperoned by MARIAN Contreras. Inspection: Yes normal to inspection Palpation (GI): Firmness to palpation present (GI) (diffusely firm), Tenderness to palpation present (GI) in the LLQ; with no rebound tenderness, no guarding, no masses, no pulsatile masses and No Rebound tenderness present Auscultation: normoactive bowel sounds Rectal Exam - Female: normal sphincter tone, External hemorrhoid(s) present (not thrombosed), No fecal impaction and No mass General: Yes no CVA tenderness Back/Spine/Pelvis Back: no CVA tenderness Skin General skin exam: elasticity normal and turgor normal Neuro General: patient oriented x3, moves all extremities, Normal light touch and pain sensation, no focal motor deficits, CN's II-XI intact bilaterally and deep tendon reflexes 2+ bilaterally Cranial nerves: Yes Equal, round and reactive pupils present Extrem General: Yes normal to inspection, Yes full ROM, Yes capillary refill normal, Yes no pedal edema and Yes no calf tenderness Psych Appearance: grossly normal Speech and movement: Normal speech and movement present Affect: Sad affect present and Anxious affect present Course Course Course Narrative: Here with . A few month history of nausea, constipation (last BM at least one week ago), lower abdominal pain. Pain 6/10 at this time worse with palpation. States she has not passed gas in several days. Reports decreased PO intake Uses miralax, dulcolax, suppositories with no relief in constipation. States OTC constipation meds make it 'worse'. Has not used enemas. HX 'horrible hemorrhoids' with occasional bleeding. No bleeding noted now. States she has been sick for greater than 3 years with a 40+ lb weight loss. Says she has been worked up for crohns and colitis with no explanation for weight loss and chronic abd pain RME: Appears frail and tearful, LS CTA, HR RRR, A&Ox4, MAEx4 4/5 strength, lower abd pain w/palp, hypoactive BS. Medical Decision Making Medical Decision Making [facility] Narrative: Patient is a 63-year-old female presenting to the emergency department with complaint of worsening left lower quadrant abdominal pain and decreased PO intake. On exam patient is awake, A+Ox3, BP mildly elevated, VS otherwise WNL, afebrile, normal neurological exam without focal deficits, physical exam findings as above. Given reported symptoms and physical exam findings, initial differential includes constipation, diverticulitis, obstruction, colitis. Less likely appendicitis, pancreatitis. Labs notable for no leukocytosis, microcytic anemia, no significant electrolyte abnormalities, no evidence of AMELIA, normal LFTs. No evidence of infection on urinalysis. Guaiac negative CT notable for diffuse mural thickening consistent with colitis, constipation, no evidence of obstruction, mild hepatomegaly. My interpretation is in agreement with the radiologist's interpretation. Results discussed with patient. She states that she has a telehealth appointment with her PCP tomorrow. Patient provided with results from today's visit so she is able to discussed these with her PCP tomorrow. Patient states she is not interested in treatment for colitis at this time as she has been told multiple times by GI that this is not the cause of her symptoms. Will refer to GI here as patient expresses frustration at not having a clear answer for her symptoms. Return precautions discussed with patient and at length. Patient verbalilzed understanding of and agreement with plan. Differential Diagnosis Differential Diagnoses: The differential diagnosis associated with the presentation includes as per [facility] Admission/Observation Consideration of admission/observation: Escalation of care including admission/observation considered Lab Data [facility] Lab Attestation statement: I reviewed the patient's lab results. As per [facility] 12/07/23 15:04 12/07/23 15:04 Labs: Lab Results 12/07/23 12/07/23 12/07/23 Range/Units 15:04 16:38 18:13 WBC 7.3 (4.8-10.8) X10*3/uL RBC 3.57 L (4.20-5.50) X10*6/uL Hgb 9.2 L (12.0-16.0) g/dl Hct 29.4 L (37.0-47.0) % MCV 82.4 (80.0-98.0) fL MCH 25.8 L (27.0-33.0) pg MCHC 31.3 (31.0-35.0) g/dl RDW 15.7 (11.0-16.0) % Plt Count 381 (160-400) X10*3/uL MPV 8.5 L (9.4-12.3) fL Immature Gran % (Auto) 0.3 (0.0-0.4) % Neut % (Auto) 77.9 H (45-73) % Lymph % (Auto) 10.4 L (20-40) % [place] % (Auto) 9.4 (2-11) % Eos % (Auto) 1.2 (0-4) % Baso % (Auto) 0.8 (0-2) % Lymph # (Auto) 0.8 L (1.2-4.9) X10*3/uL [place] # (Auto) 0.7 (0.1-1.2) X10*3/uL Eos # (Auto) 0.1 (0.0-0.4) X10*3/uL Baso # (Auto) 0.1 (0.0-0.2) X10*3/uL Abs Immat Gran (auto) 0.02 (0.00-0.03) X10*3/uL Absolute Neuts (auto) 5.7 (2.0-8.3) x10*3/uL Absolute Nucleated RBC 0.000 (0.0-0.012) X10*3/uL Nucleated RBC % (auto) 0.0 (0.0-0.2) /100WBC Sodium 138 (135-145) mmol/L Potassium 3.8 (3.3-5.1) mmol/L Chloride 105 (96-108) mmol/L Carbon Dioxide 28 (22-29) mmol/L Anion Gap 9 L (12-20) BUN 13 (9-16) mg/dL Creatinine 0.76 (0.5-1.4) mg/dL Estim Creat Clear Calc 49.2 Estimated GFR > 60 Random Glucose 91 (60-115) mg/dL Calcium 8.5 (8.4-10.2) mg/dL Phosphorus 3.2 (2.7-4.5) mg/dL Magnesium 2.0 (1.6-2.6) mg/dL Total Bilirubin 0.3 (0.0-1.0) mg/dL AST 14 (5-31) U/L ALT 9 (0-31) U/L Alkaline Phosphatase 59 (39-117) U/L Total Protein 6.3 L (6.5-8.0) g/dL Albumin 3.3 L (3.5-5.0) g/dL Urine Color Dark Yellow Urine Appearance Clear Urine pH 7.0 (5.0-9.0) Ur Specific [place] >= 1.030 H (1.005-1.025) Urine Protein Negative (Neg-Trace) mg/dL Urine Glucose (UA) Negative (Negative) mg/dL Urine Ketones Negative (Negative) mg/dL Urine Blood Negative (Negative) Urine Nitrite Negative (Negative) Ur Leukocyte Esterase Negative (Negative) Urine RBC 0-2 (0-2) /HPF Urine WBC 0-5 (0-5) /HPF Ur Squamous Epith Cells 3-5 (0-2) /HPF Urine Bacteria None Seen (None Seen) Hyaline Casts 0-2 (0-2) /LPF Stool Occult Blood NEGATIVE (NEGATIVE) Independent Interpretation I performed an independent interpretation of an: CT Scan Interpretation: diffuse mural thickening, significant constipation, no obstruction Radiology Impression Discussion of test interpretation with radiology: I have reviewed the radiologist's reading. Radiologist Impression: CT/CT abdomen pelvis w IV con IMPRESSION: Diffuse mural thickening involving the entire sigmoid colon consistent with colitis of inflammatory or infectious etiology. There is significant constipation but no colonic distention to suspect any obstruction. Mild hepatomegaly with perihepatic minimal fluid. Gallbladder is out. Fleischner guidelines were followed. External Record Review External record reviewed: Inpatient record, Office record and Outpatient record Medications Administered Discontinued Medications Generic Name Dose Route Start Last Admin Trade Name Freq PRN Reason Stop Dose Admin Sodium Chloride 1,000 mls @ 999 mls/hr 12/07/23 16:45 12/07/23 19:10 Ns IV 12/07/23 17:45 Infused .Q1H1M NITIN Infusion Iohexol 100 ml 12/07/23 17:35 12/07/23 17:37 Iohexol 350 Mg/Ml 100 Ml Infus..Btl IV 12/07/23 17:36 85 ml ONCE ONE Administration Discharge Plan Discharge Clinical Impression: Constipation, Abdominal pain Patient Disposition: Home, Self-Care Instructions: Constipation (DC) Additional Instructions: You have been evaluated in the emergency department today for abdominal pain. Your evaluation did not show evidence of medical conditions requiring emergent intervention at this time. Please keep your previously scheduled telehealth appointment with your primary care physician tomorrow. Return to the emergency department if you experience worsening or uncontrolled pain, fevers 100.4? F or greater, recurrent vomiting, inability to tolerate food or fluids by mouth, bloody stools or vomit, black or tarry stools, or any other concerning symptoms. Prescriptions: No Action ondansetron 4 mg tablet,disintegrating 4 mg PO Q8H PRN (Reason: nausea and vomiting) Qty: 20 0RF dicyclomine 10 mg capsule 10 mg PO BID PRN levothyroxine [Levoxyl] 25 mcg tablet 25 mcg PO DAILY hydroxyzine HCl 25 mg tablet 100 mg PO BEDTIME tramadol 50 mg tablet 50 mg PO Q6H PRN nortriptyline 50 mg capsule 50 mg PO BEDTIME montelukast 10 mg tablet 10 mg PO BEDTIME azathioprine 50 mg tablet 25 mg PO DAILY tizanidine 2 mg tablet 2 mg PO BID PRN ergocalciferol (vitamin D2) 1,250 mcg (50,000 unit) capsule 1,250 mcg PO QWEEK clonazepam 1 mg tablet 1 mg PO BEDTIME PRN omeprazole 20 mg capsule,delayed release(DR/EC) 20 mg PO DAILY albuterol sulfate 90 mcg/actuation HFA aerosol inhaler 0 mcg inhalation [id number] mg capsule 1 cap PO Q4H PRN Referrals: [facility] Gastroenterology Services [Provider Group]
[2023-12-07 12:22] VITALS: BP 126/66; PULSE 97; RESP 15; TEMP 36.4; O2SAT 97; BMI 15.3
[2023-12-07 15:08] LABS: MANUAL DIFF FLAG NO
[2023-12-07 15:15] LABS: Basophils Absolute Auto 0.1 X10*3/uL (0.0-0.2); Basophils Percent Auto 0.8 % (0-2); Eosinophils Absolute Auto 0.1 X10*3/uL (0.0-0.4); Eosinophils Percent Auto 1.2 % (0-4); Hematocrit 29.4 % (37.0-47.0); Hemoglobin 9.2 g/dl (12.0-16.0); Imm Gran Abs Auto 0.02 X10*3/uL (0.00-0.03); Imm Gran Pct Auto 0.3 % (0.0-0.4); Lymphocytes Absolute Auto 0.8 X10*3/uL (1.2-4.9); Lymphocytes Percent Auto 10.4 % (20-40); Mean Corpuscular HGB Conc 31.3 g/dl (31.0-35.0); Mean Corpuscular Hemoglobin 25.8 pg (27.0-33.0); Mean Corpuscular Volume 82.4 fL (80.0-98.0); Mean Platelet Volume 8.5 fL (9.4-12.3); Monocytes Absolute Auto 0.7 X10*3/uL (0.1-1.2); Monocytes Percent Auto 9.4 % (2-11); Neutrophils Absolute Auto 5.7 x10*3/uL (2.0-8.3); Neutrophils Percent Auto 77.9 % (45-73); Platelet Count 381 X10*3/uL (160-400); Red Blood Count 3.57 X10*6/uL (4.20-5.50); Red Cell Distribution Width 15.7 % (11.0-16.0); White Blood Count 7.3 X10*3/uL (4.8-10.8)
[2023-12-07 15:23] LABS: Alanine Aminotransferase 9 U/L (0-31); Albumin Level 3.3 g/dL (3.5-5.0); Alkaline Phosphatase 59 U/L (39-117); Anion Gap 9 (12-20); Aspartate Amino Transferase 14 U/L (5-31); Bilirubin Total 0.3 mg/dL (0.0-1.0); Blood Urea Nitrogen 13 mg/dL (9-16); Calcium 8.5 mg/dL (8.4-10.2); Carbon Dioxide 28 mmol/L (22-29); Chloride 105 mmol/L (96-108); Creatinine Clr Calc Pharmacy 49.2; Estimated Glomerular Filt Rate > 60; Glucose Random 91 mg/dL (60-115); Phosphorus 3.2 mg/dL (2.7-4.5); Potassium 3.8 mmol/L (3.3-5.1); Sodium 138 mmol/L (135-145); Total Protein 6.3 g/dL (6.5-8.0)
[2023-12-07 16:00] VITALS: BP 144/64; PULSE 81; RESP 12; TEMP 37.1; O2SAT 98
[2023-12-07 16:48] LABS: OBS Int Ctl Valid YES; OBS1 NEGATIVE (NEGATIVE)
[2023-12-07] MEDS: 0.9 % Sodium Chloride 1,000 ML 999 ML IV (17:30)
[2023-12-07] MEDS: iohexoL 350 MG/ML 100 ML INFUS..BTL IV (17:37)
[2023-12-07 18:22] LABS: Appearance Urine Clear; Color Urine Dark Yellow; Glucose Urine UA Negative (Negative); Leukocyte Esterase Urine Negative (Negative); Nitrite Urine Negative (Negative); Specific Gravity - Urine >= 1.030 (1.005-1.025); Urine Blood Negative (Negative); Urine Ketones Negative (Negative); Urine Protein Negative (Neg-Trace)
[2023-12-07 18:27] LABS: Bacteria Urine None Seen (None Seen); Hyaline Casts Urine 0-2 /LPF (0-2); RBC Urine 0-2 /HPF (0-2); WBC Urine 0-5 /HPF (0-5)
[2023-12-07 19:00] VITALS: BP 140/70; PULSE 70; RESP 16; TEMP 36.1; O2SAT 98
== END 2023-12-07 19:30 | disposition home or self-care (01) ==
PROVIDERS: Nurse Practitioner Family; Registered Nurse Emergency; Emergency Provider Student in an Organized Health Care Education/Training Program; PCP Family Medicine
DX: K59.00 Constipation, unspecified (principal); R10.32 Left lower quadrant pain; G89.4 Chronic pain syndrome; K50.10 Crohn's disease of large intestine without complications; Z79.899 Other long term (current) drug therapy
CPT/HCPCS: 36415; 74177; 80053; 81001; 82272; 83735; 84100; 85025; 96360; 96361; 99284; Q9967

== ENCOUNTER 2024-01-13 23:46 | Emergency (ER) | payer BC, SELFPAY ==
--- NOTE | 2024-01-13 | ECG_ITS ---
Test Reason : CHEST PAIN Blood Pressure : / mmHG Vent. Rate : 125 BPM Atrial Rate : 094 BPM P-R Int : 172 ms QRS Dur : 078 ms QT Int : 322 ms P-R-T Axes : 077 087 034 degrees QTc Int : 464 ms Artifact in tracing Poor data quality Abnormal ECG When compared with ECG of 06-NOV-2023 09:34, Poor data quality in current ECG precludes serial comparison Referred By: Generic ED Physician Electronically Signed By:Angelito Keith
--- NOTE | ~2024-01-13 | CT_ITS ---
EXAMINATION: CT ABDOMEN AND PELVIS WITHOUT CONTRAST CLINICAL INFORMATION: Pain. COMPARISON: 12/07/2023 TECHNIQUE: Multidetector volumetric imaging was performed from the superior aspect of the liver through the pubic symphysis. Sagittal and coronal reformatted images were obtained on the technologist's workstation. This CT examination was performed using dose optimization techniques as appropriate, variously including the following: *Automated exposure control *Adjustment of mA and/or kV according to patient size (this includes techniques or standardized protocols for targeted exams where dose is matched to indication/reason for exam; i.e. extremities or head) *Use of iterative reconstruction technique DLP: 266 mGy-cm FINDINGS: LUNG BASES: There is a small dependent pericardial effusion. LIVER, GALLBLADDER, AND BILIARY TREE: The liver is normal in size, shape, and attenuation. No focal hepatic lesion or biliary ductal dilatation is present. There has been a prior cholecystectomy. PANCREAS: Unremarkable. SPLEEN: Unremarkable. ADRENAL GLANDS: Unremarkable. KIDNEYS AND URETERS: The kidneys are normal in size, shape, and attenuation. There is a 2 mm calculus upper pole left kidney. There is no hydronephrosis. BLADDER: Unremarkable. GASTROINTESTINAL TRACT: There is gastric antral thickening. There is retained stool within the right and transverse colon. There is significant thickening of the rectosigmoid colon with mild surrounding infiltrative change. The appendix is not seen. ABDOMINAL WALL: A defect along the upper abdominal wall at the midline posteriorly to prior gastric tube placement. LYMPH NODES: Normal. VASCULAR: Unremarkable. PELVIC VISCERA: Unremarkable. OSSEOUS STRUCTURES: Unremarkable. CT/CT abdomen pelvis wo IV con IMPRESSION: Lack of oral and IV contrast limits evaluation. 1. Thickening of the rectosigmoid colon with mild surrounding infiltrative change consistent with colitis. 2. Gastric antral thickening which could be related to gastritis. 3. Nonobstructing left renal calculus. 4. Small dependent pericardial effusion Fleischner guidelines were followed.
[2024-01-14] VITALS: BP 168/81; PULSE 95; RESP 16; O2SAT 96; BMI 14.6
[2024-01-14 00:09] LABS: Hematocrit 30.5 % (37.0-47.0); Hemoglobin 9.8 g/dl (12.0-16.0); Mean Corpuscular HGB Conc 32.1 g/dl (31.0-35.0); Mean Corpuscular Hemoglobin 24.4 pg (27.0-33.0); Mean Corpuscular Volume 75.9 fL (80.0-98.0); Mean Platelet Volume 7.9 fL (9.4-12.3); Platelet Count 581 X10*3/uL (160-400); Red Blood Count 4.02 X10*6/uL (4.20-5.50); Red Cell Distribution Width 14.1 % (11.0-16.0); White Blood Count 14.1 X10*3/uL (4.8-10.8)
--- NOTE | 2024-01-14 00:13 | ED_ITS ---
HPI - Chest Pain General Chief Complaint: Chest Pain Stated Complaint: chest pain/vomiting Time Seen by Provider: 01/14/24 00:02 Source: patient and family Mode of arrival: ambulatory Limitations: no limitations History of Present Illness HPI narrative: Patient comes to the emergency room accompanied by family. Patient complaining of severe anxiety, chest pain that started approximately 10 hours ago, and abdominal pain that started 6 months ago. Patient complaining of intermittent diarrhea and constipation, never been diagnosed with IBS, patient has been diagnosed with Crohn's in the past. Denies bloody diarrhea. Related Data Home Medications Medication Instructions Recorded Confirmed albuterol sulfate 90 mcg/actuation 0 mcg inhalation 07/04/22 07/04/22 aerosol inhaler azathioprine 50 mg tablet 25 mg PO DAILY 07/04/22 07/04/22 butalbital 50 mg-acetaminophen 325 1 cap PO Q4H PRN 07/04/22 07/04/22 mg-caffeine 40 mg-codeine 30 mg cap clonazepam 1 mg tablet 1 mg PO BEDTIME PRN 07/04/22 07/04/22 dicyclomine 10 mg capsule 10 mg PO BID PRN 07/04/22 07/04/22 ergocalciferol (vitamin D2) 1,250 1,250 mcg PO QWEEK 07/04/22 07/04/22 mcg (50,000 unit) capsule hydroxyzine HCl 25 mg tablet 100 mg PO BEDTIME 07/04/22 07/04/22 levothyroxine 25 mcg tablet 25 mcg PO DAILY 07/04/22 07/04/22 (Levoxyl) montelukast 10 mg tablet 10 mg PO BEDTIME 07/04/22 07/04/22 nortriptyline 50 mg capsule 50 mg PO BEDTIME 07/04/22 07/04/22 omeprazole 20 mg capsule,delayed 20 mg PO DAILY 07/04/22 07/04/22 release tizanidine 2 mg tablet 2 mg PO BID PRN 07/04/22 07/04/22 tramadol 50 mg tablet 50 mg PO Q6H PRN 07/04/22 07/04/22 Previous Rx's Medication Instructions Recorded ondansetron 4 mg disintegrating 4 mg PO Q8H PRN nausea and 11/06/23 tablet vomiting #20 tabs levofloxacin 500 mg tablet 500 mg PO DAILY #9 tabs 01/14/24 metronidazole 500 mg tablet 500 mg PO BID #19 tabs 01/14/24 oxycodone 5 mg tablet 5 mg PO BID PRN pain #8 tabs 01/14/24 polyethylene glycol 3350 17 17 g PO DAILY PRN laxative effect 01/14/24 gram/dose oral powder (Miralax) #119 grams Allergies Allergy/AdvReac Type Severity Reaction Status Date / Time prednisone AdvReac Severe steroid Verified 11/06/23 09:40 psychosis Review of Systems 2 Review of Systems: Constitutional : No Weight loss, No Fever, No Chills, No Night Sweats, No Fatigue, No Malaise ENT/Mouth : No Hearing loss, No Ear Pain, No Nasal Congestion, No Sinus Pain, No Hoarseness, No sore throat, No Rhinorrhea, No Swallowing Difficulty Eyes: No Eye Pain, No Swelling, No Redness, No Foreign Body, No Discharge, No Vision Changes Cardiovascular : Complaining of Chest Pain, No SOB, No Dyspnea on Exertion, No Orthopnea, No Edema, No Palpitations Respiratory : No Cough, No Sputum, No Wheezing, No Smoke Exposure, No Dyspnea Gastrointestinal : No Nausea, No Vomiting, No Diarrhea, No Constipation, complaining of chronic abdominal Pain, No Hematochezia, No Melena Genitourinary : no irregular bleeding, No Dysuria, No Urinary Frequency, No Hematuria, No Urinary Incontinence, No Urgency, No Flank Pain, No Urinary Flow Changes, No Hesitancy Musculoskeletal : No joint pain, No Myalgias, No Joint Swelling Skin : No Skin Lesions, No rash Neuro : No Weakness, No Numbness, No Paresthesias, No Loss of Consciousness, No Dizziness, No Headache Psych : Severe anxiety No Depression, No SI/HI/AH/VH, No Social Issues, Heme/Lymph: No Bruising, No Bleeding,No Lymphadenopathy Endocrine : No Polyuria, No Polydipsia, No Temperature Intolerance PMFSH Past Medical History Medical History Seasonal allergies Hypothyroidism Insomnia Gastroesophageal reflux disease Depression Fibromyalgia Migraine headache Social History Social History Advance Directives: No Advance Directives Information Provided: No Physical Exam 2 Vital Signs: Vital Signs: Last Vital Signs Pulse 95 01/14/24 00:00 Resp 16 01/14/24 00:00 BP 168/81 H 01/14/24 00:00 Pulse Ox 96 01/14/24 00:00 O2 Del Method Room Air 01/14/24 00:00 BMI result Body Mass Index 14.6 Const: Other: Appearance: Alert. Oriented X3. Extremely anxious, shaking, patient is cachectic Eyes: Pupils equal, round and reactive to light. ENT: Pharynx normal. Neck: Normal inspection. Neck supple. No lymph nodes noted. No crepitus CVS: Normal heart rate and rhythm. Pulses normal. Normal S1 and S2 Respiratory: No respiratory distress. Breath sounds normal. No Wheezing. No rales Abdomen: Soft and nontender. No rigidity. No distention. Skin: Skin warm and dry. Normal skin color. Normal skin turgor. Extremities: No lower extremity edema. No Lacerations. No Rash Neuro: Oriented X 3. No motor deficit. No sensory deficit. Moving all extremities. No slurred speech. CN 2 through 12 grossly intact Psych: Extremely anxious, tearful Course Course Course Narrative: -patient is extremely anxious, patient giving 1 mg of Ativan, patient is severely underweight. -all of patient's labs and imaging pending. Medications Administered Discontinued Medications Generic Name Dose Route Start Last Admin Trade Name Freq PRN Reason Stop Dose Admin Sodium Chloride 1,000 mls @ 999 mls/hr 01/14/24 00:19 01/14/24 00:57 Ns IVCONT 01/14/24 01:19 999 mls/hr .Q1H1M ONE Administration Lorazepam 1 mg 01/14/24 00:13 01/14/24 00:57 Lorazepam 2 Mg/Ml Vial IVPUSH 01/14/24 00:14 1 mg ONCE ONE Administration Medical Decision Making Medical Decision Making MDM Narrative: -the anxious, very jittery, EKG not the best due to the tremors. However, there are no significant changes indicating a STEMI or NSTEMI -my interpretation of labs: Sodium is 131, likely to decreased p.o. intake. Patient was hydrated with IV fluids, patient does not have hyponatremia symptoms. Troponin negative. White blood cell count 14.1. -my interpretation of CT scan, no small-bowel obstruction, no free air. -radiology report, colitis -patient was given IV morphine, levofloxacin and metronidazole -I discussed with the patient that she had the choice between staying in the hospital for pain control versus going home. Patient and family feel better going home. Patient has an appointment pending with a general surgeon in 9 days in [facility]. According to family, patient is scheduled for and expiratory surgery due to chronic pain that has been present for more than 6 months. -family states that the patient complains of abdominal pain every day for about 6 months. However, she has had intermittent symptoms for 3+ years also, patient is scheduled for a colonoscopy which will be addressed with her surgeon at [facility] next week Differential Diagnosis Differential Diagnoses: The differential diagnosis associated with the presentation includes (Colitis, small-bowel obstruction, anxiety, functional abdominal pain.) Admission/Observation Consideration of admission/observation: Escalation of care including admission/observation considered (Admission was offered. respectfully declined) Consult Healthcare Provider Management of the patient was discussed with: Hospitalist Lab Data MDM Lab Attestation statement: I reviewed the patient's lab results. 01/13/24 23:58 01/13/24 23:58 Labs: Lab Results 01/13/24 Range/Units 23:58 WBC 14.1 H (4.8-10.8) X10*3/uL RBC 4.02 L (4.20-5.50) X10*6/uL Hgb 9.8 L (12.0-16.0) g/dl Hct 30.5 L (37.0-47.0) % MCV 75.9 L (80.0-98.0) fL MCH 24.4 L (27.0-33.0) pg MCHC 32.1 (31.0-35.0) g/dl RDW 14.1 (11.0-16.0) % Plt Count 581 H D (160-400) X10*3/uL MPV 7.9 L (9.4-12.3) fL Immature Gran % (Auto) Cancelled Neut % (Auto) Cancelled Lymph % (Auto) Cancelled Schleicher % (Auto) Cancelled Eos % (Auto) Cancelled Baso % (Auto) Cancelled Lymph # (Auto) Cancelled Schleicher # (Auto) Cancelled Eos # (Auto) Cancelled Baso # (Auto) Cancelled Abs Immat Gran (auto) Cancelled Absolute Neuts (auto) Cancelled Absolute Nucleated RBC 0.000 (0.0-0.012) X10*3/uL Nucleated RBC % (auto) 0.0 (0.0-0.2) /100WBC Neutrophils % (Manual) 56 (45-73) % Band Neutrophils % 38 H (3-5) % Lymphocytes % (Manual) 3 L (20-40) % Monocytes % (Manual) 3 (2-11) % Abs Neuts (Manual) 13.3 H (2.0-8.3) X10*3/uL Lymphocytes # (Manual) 0.4 L (1.2-4.9) X10*3/uL Monocytes # (Manual) 0.4 (0.1-1.2) X10*3/uL Toxic Granulation PRESENT Toxic Vacuolation PRESENT Dohle Bodies PRESENT Platelet Estimate SLIGHTLY INCREASED (NORMAL) Plt Morphology Comment NORMAL RBC Morphology NOTED Ovalocytes 1+ (5-14) /OIF [place] Cells 1+ (0-2) /OIF Schistocytes 1+ (0-2) /OIF Smear Tech's Comments MANUAL DIFF Sodium 131 L (135-145) mmol/L Potassium 3.9 (3.3-5.1) mmol/L Chloride 97 (96-108) mmol/L Carbon Dioxide 24 (22-29) mmol/L Anion Gap 14 (12-20) BUN 15 (9-16) mg/dL Creatinine 0.95 (0.5-1.4) mg/dL Estim Creat Clear Calc 37.7 Estimated GFR 59 Random Glucose 291 H (60-115) mg/dL Calcium 8.2 L (8.4-10.2) mg/dL Total Bilirubin 0.3 (0.0-1.0) mg/dL AST 25 (5-31) U/L ALT 16 (0-31) U/L Alkaline Phosphatase 93 (39-117) U/L Troponin I High Sens < 2.7 (<3.5-17.0) ng/L Total Protein 5.8 L (6.5-8.0) g/dL Albumin 2.6 L (3.5-5.0) g/dL Lipase < 4 L (8-78) U/L Independent Interpretation I performed an independent interpretation of an: CT Scan Radiology Impression Discussion of test interpretation with radiology: I have reviewed the radiologist's reading. Radiologist Impression: FINDINGS: LUNG BASES: There is a small dependent pericardial effusion. LIVER, GALLBLADDER, AND BILIARY TREE: The liver is normal in size, shape, and attenuation. No focal hepatic lesion or biliary ductal dilatation is present. There has been a prior cholecystectomy. PANCREAS: Unremarkable. SPLEEN: Unremarkable. ADRENAL GLANDS: Unremarkable. KIDNEYS AND URETERS: The kidneys are normal in size, shape, and attenuation. There is a 2 mm calculus upper pole left kidney. There is no hydronephrosis. BLADDER: Unremarkable. GASTROINTESTINAL TRACT: There is gastric antral thickening. There is retained stool within the right and transverse colon. There is significant thickening of the rectosigmoid colon with mild surrounding infiltrative change. The appendix is not seen. ABDOMINAL WALL: A defect along the upper abdominal wall at the midline posteriorly to prior gastric tube placement. LYMPH NODES: Normal. VASCULAR: Unremarkable. PELVIC VISCERA: Unremarkable. OSSEOUS STRUCTURES: Unremarkable. CT/CT abdomen pelvis wo IV con IMPRESSION: Lack of oral and IV contrast limits evaluation. 1. Thickening of the rectosigmoid colon with mild surrounding infiltrative change consistent with colitis. 2. Gastric antral thickening which could be related to gastritis. 3. Nonobstructing left renal calculus. 4. Small dependent pericardial effusion Fleischner guidelines were followed. Critical Care Time Critical Care Time Critical Care Time: Yes Total Critical Care Time: 60 Attestation: I have personally provided critical care time. Time includes review of lab data, radiology results, discussion with consultants, and monitoring for potential decompensation. Intervention performed as documented. Discharge Plan Discharge Clinical Impression: Colitis, Anxiety Patient Disposition: Home, Self-Care Instructions: Anxiety (ED), Colitis (ED) Additional Instructions: Please follow-up with your primary care physician tomorrow. If you have any worsening or new symptoms, please return to the emergency room or call 911 Prescriptions: New levofloxacin 500 mg tablet 500 mg PO DAILY Qty: 9 0RF metronidazole 500 mg tablet 500 mg PO BID Qty: 19 0RF oxycodone 5 mg tablet 5 mg PO BID PRN (Reason: pain) Qty: 8 0RF Rx Instructions: Partial Fill upon patient request. polyethylene glycol 3350 [Miralax] 17 gram/dose powder 17 g PO DAILY PRN (Reason: laxative effect) Qty: 119 0RF No Action ondansetron 4 mg tablet,disintegrating 4 mg PO Q8H PRN (Reason: nausea and vomiting) Qty: 20 0RF dicyclomine 10 mg capsule 10 mg PO BID PRN levothyroxine [Levoxyl] 25 mcg tablet 25 mcg PO DAILY hydroxyzine HCl 25 mg tablet 100 mg PO BEDTIME tramadol 50 mg tablet 50 mg PO Q6H PRN nortriptyline 50 mg capsule 50 mg PO BEDTIME montelukast 10 mg tablet 10 mg PO BEDTIME azathioprine 50 mg tablet 25 mg PO DAILY tizanidine 2 mg tablet 2 mg PO BID PRN ergocalciferol (vitamin D2) 1,250 mcg (50,000 unit) capsule 1,250 mcg PO QWEEK clonazepam 1 mg tablet 1 mg PO BEDTIME PRN omeprazole 20 mg capsule,delayed release(DR/EC) 20 mg PO DAILY albuterol sulfate 90 mcg/actuation HFA aerosol inhaler 0 mcg inhalation [id number] mg capsule 1 cap PO Q4H PRN
[2024-01-14 00:27] LABS: Alanine Aminotransferase 16 U/L (0-31); Albumin Level 2.6 g/dL (3.5-5.0); Alkaline Phosphatase 93 U/L (39-117); Anion Gap 14 (12-20); Aspartate Amino Transferase 25 U/L (5-31); Bilirubin Total 0.3 mg/dL (0.0-1.0); Blood Urea Nitrogen 15 mg/dL (9-16); Calcium 8.2 mg/dL (8.4-10.2); Carbon Dioxide 24 mmol/L (22-29); Chloride 97 mmol/L (96-108); Creatinine Clr Calc Pharmacy 37.7; Estimated Glomerular Filt Rate 59; Glucose Random 291 mg/dL (60-115); Potassium 3.9 mmol/L (3.3-5.1); Sodium 131 mmol/L (135-145); Total Protein 5.8 g/dL (6.5-8.0)
[2024-01-14 00:28] LABS: Troponin-I High Sensitivity < 2.7 ng/L (<3.5-17.0)
[2024-01-14 00:53] LABS: SLIDE REVIEW MANUAL DIFF
[2024-01-14] MEDS: 0.9 % Sodium Chloride 1,000 ML 999 ML IVCONT (00:57)
[2024-01-14] MEDS: LORazepam 2 MG/ML VIAL 1 MG IVPUSH (00:57)
[2024-01-14 00:59] LABS: Neutrophils Percent Manual 56 % (45-73)
[2024-01-14 01:01] LABS: Band Neutrophils Percent 38 % (3-5); Lymphocytes Absolute Manual 0.4 X10*3/uL (1.2-4.9); Lymphocytes Percent Manual 3 % (20-40); Monocytes Absolute Manual 0.4 X10*3/uL (0.1-1.2); Monocytes Percent Manual 3 % (2-11); Neutrophils Absolute Manual 13.3 X10*3/uL (2.0-8.3)
[2024-01-14 01:02] LABS: Burr Cells 1+ (0-2) /OIF; Ovalocytes 1+ (5-14) /OIF; RBC Morphology NOTED; Schistocytes 1+ (0-2) /OIF; Toxic Vacuolation PRESENT
[2024-01-14 01:03] LABS: Dohle Bodies PRESENT; Toxic Granulation PRESENT
[2024-01-14 01:04] LABS: Platelet Estimate SLIGHTLY INCREASED (NORMAL)
[2024-01-14 01:05] LABS: Platelet Morphology Comment NORMAL
[2024-01-14 01:35] LABS: Lipase < 4 U/L (8-78)
[2024-01-14] MEDS: Morphine Sulfate 2 MG/ML CARTRIDGE 1 MG IVPUSH (04:04)
[2024-01-14] MEDS: levoFLOXacin 500 MG TABLET PO (04:05)
[2024-01-14] MEDS: metroNIDAZOLE 500 MG TABLET PO (04:05)
[2024-01-14 04:29] VITALS: BP 151/49; PULSE 82; RESP 15; O2SAT 98
--- NOTE | 2024-01-14 04:30 | PC.NURSE ---
pt reports she does not have cp. when asked to show location of pain pt showing general abdomen. pt reports has hx of abd isses. pt educated on d/c instructions with . both verbalize understanding d/c instructions. vss. pt medicated per mar tolerated well. axox4 ambulatory with steady gait.
== END 2024-01-14 04:31 | disposition home or self-care (01) ==
PROVIDERS: Emergency Provider Emergency Medicine; PCP Family Medicine
DX: K52.9 Noninfective gastroenteritis and colitis, unspecified (principal); R07.89 Other chest pain; F41.1 Generalized anxiety disorder; R10.2 Pelvic and perineal pain; F43.0 Acute stress reaction; Z79.899 Other long term (current) drug therapy
CPT/HCPCS: 36415; 74176; 80053; 83690; 84484; 85007; 85027; 93005; 96361; 96374; 96375; 99284; J2060; J2270

== ENCOUNTER → 2024-01-13 | Outpatient (BNV) | payer BC, SELFPAY | PROVIDERS: Emergency Provider Emergency Medicine; PCP Family Medicine; Visit Provider Internal Medicine Cardiovascular Disease | DX: R94.31 Abnormal electrocardiogram [ECG] [EKG] (principal) | CPT/HCPCS: 93010 ==